=== PATIENT | male | born 1975 | race Caucasian/White ===

== ENCOUNTER 2018-08-16 13:49 | Emergency (ER) | payer OTHER ==
[2018-08-16 13:52] VITALS: RESP 20; TEMP 97.6
[2018-08-16] MEDS ORDERED: KETOROLAC TROMETHAMINE 30 MG/ML SOL IM ONE (14:29)
[2018-08-16] MEDS ORDERED: KETOROLAC TROMETHAMINE 30 MG/ML SOL ONE (14:30)
[2018-08-16 14:36] VITALS: O2SAT 97
[2018-08-16 16:15] VITALS: BP 132/84; PULSE 87
== END 2018-08-16 17:58 | disposition home or self-care (01) | DRG 556 ==
LOC: ED 13:49
DX: M79.18 Myalgia, other site (principal); V89.2XXA Person injured in unspecified motor-vehicle accident, traffic, initial encounter; Y92.413 State road as the place of occurrence of the external cause; Y93.9 Activity, unspecified; Y99.9 Unspecified external cause status
CPT/HCPCS: 70450; 71260; 72125; 96372; 99284; 99285; G0390; J1885; Q9967

== ENCOUNTER 2018-08-26 04:07 | Emergency (ER) | payer OTHER ==
[2018-08-26 04:17] VITALS: RESP 20; TEMP 97.9; O2SAT 98
[2018-08-26 04:39] VITALS: PULSE 54
[2018-08-26] MEDS: KETOROLAC TROMETHAMINE 30 MG/ML SOL IM ONE ×2 (05:12)
[2018-08-26] MEDS ORDERED: KETOROLAC TROMETHAMINE 30 MG/ML SOL ONE (05:13)
[2018-08-26 05:46] VITALS: BP 111/83
== END 2018-08-26 05:50 | disposition home or self-care (01) | DRG 103 ==
LOC: ED 04:07
DX: R51 Headache (principal)
CPT/HCPCS: 70450; 96372; 99283; 99284; J1885